=== PATIENT | female | born 1970 | race Caucasian/White ===

== ENCOUNTER 2016-11-25 21:18 | Emergency (ER) | payer OTHER ==
--- NOTE | ~2016-11-25 | CR230 ---
[facility] A Service of [facility] RADIOLOGY TEXT RESULTS PATIENT: JIN HEAD LOCATION: [facility] : 68 UNIT #: [id number] AGE: [address]: Vamshi White DO SEX: F ORDER DR: [id number] [facility] [address] [place], [place] [address] [id number] E MR#: [id number] Acc #: [id number] NAME: JIN HEAD : 1970 SEX: F STUDY DATE/TIME: 11/26/2016 0:17 UNIT: EST[facility] ROOM: STUDY DESCRIPTION: CR Shoulder Min 2 View Rt Attending Physician: Vamshi White D.O. Ordering Physician: Vamshi White D.O. Primary Care Physician: Solitario Aguilar M.D. MEDICAL IMAGING REPORT This report is preliminary unless electronic signature is present EXAM Right shoulder, 11/26/2016 HISTORY 46-year-old female in the ED complaining of right shoulder pain after a fall earlier today. TECHNIQUE Three-view right shoulder series. FINDINGS No fracture, dislocation or other osseous abnormality is demonstrated. IMPRESSION Negative right shoulder series. Dictated by... Matt Joseph M.D. THIS IS AN ELECTRONICALLY VERIFIED REPORT Matt Joseph M.D. at 11/26/2016 9:57 PM Jolanta TD: 11/26/2016 08:59 JOB #: [id number] MEDICAL IMAGING REPORT Page 1 of 1 COPY
[~2016-11-25 21:18] MED LIST: CIPRODEX OTIC7.5 ML OT; KEFLEX500 MG PO; LORTAB 5/500 TA1 TA1 PO
== END 2016-11-26 02:15 | disposition home or self-care (01) ==
LOC: CED 21:18
DX: S46.911A Strain of unspecified muscle, fascia and tendon at shoulder and upper arm level, right arm, initial encounter (principal); Z79.2 Long term (current) use of antibiotics; Z79.899 Other long term (current) drug therapy; Z88.5 Allergy status to narcotic agent; W01.0XXA Fall on same level from slipping, tripping and stumbling without subsequent striking against object, initial encounter; Y92.009 Unspecified place in unspecified non-institutional (private) residence as the place of occurrence of the external cause
CPT/HCPCS: 73030; 99283